=== PATIENT | male | born 1980 | race Caucasian/White ===

== ENCOUNTER 2016-07-02 11:37 | Emergency (ER) | payer OTHER ==
[2016-07-02] MEDS ORDERED: SODIUM CHLORIDE 0.9% 500 ML IV STA (12:20)
[2016-07-02] MEDS ORDERED: MECLIZINE 12.5 MG TAB PO STA ×2 (12:20→14:50)
[2016-07-02] MEDS ORDERED: DIAZEPAM 5 MG/ML 2 ML SYRINGE IVP STA (12:20)
--- NOTE | 2016-07-02 12:25 | ED ---
Dizziness HPI - General Chief Complaint: Dizziness Stated Complaint: FEELS WEAK, HEADACHE, CHEST PAIN, CIRO Time Seen by Provider: 07/02/16 12:06 Source: patient, RN notes reviewed Mode of arrival: ambulatory Limitations: no limitations - History of Present Illness Initial Comments: This a 36-year-old male presents emergency Department chief complaint dizziness. Patient states his woke up this morning with dizziness over the room was spinning. Patient states that he did eat some breakfast which did not help. He went to work and felt that he was still having episodes of dizziness worse with movement. Patient states his boss drove him to the hospital for concerns of his dizziness. Patient has a benign past medical history though he states is not her primary care physician. Patient does complain of a headache primarily on the right side. Patient does complain of some ear pain. He denies any recent cold like symptoms including sore throat, cough and congestion. Patient has fevers or chills. Patient states she does have some improvement of his symptoms when he is at rest. Patient states that he took some improvement to see if that improved his symptoms though did not help. Patient does complain of some chest pain and shortness breath at this time but seems started after his dizziness was present. Patient states he is very anxious currently. - Related Data Home Medications Medication Instructions Recorded Confirmed Ibuprofen [Motrin] 400 mg PO Q6HR PRN 07/02/16 07/02/16 Previous Rx's Medication Instructions Recorded Meclizine [Antivert] 25 mg PO TID PRN #20 tab 07/02/16 Allergies Allergy/AdvReac Type Severity Reaction Status Date / Time No Known Allergies Allergy Verified 07/02/16 12:39 Review of Systems ROS Statement: Those systems with pertinent positive or pertinent negative responses have been documented in the HPI. ROS Other: All systems not noted in ROS Statement are negative. Past Medical History Past Medical History: No Reported History History of Any Multi-Drug Resistant Organisms: None Reported Past Surgical History: Orthopedic Surgery Past Anesthesia/Blood Transfusion Reactions: No Reported Reaction Past Psychological History: Anxiety Smoking Status: Never smoker Past Alcohol Use History: Occasional Past Drug Use History: Marijuana General Exam Limitations: no limitations General appearance: alert, in no apparent distress Head exam: Present: atraumatic, normocephalic, normal inspection Eye exam: Present: normal appearance, PERRL, EOMI. Absent: scleral icterus, conjunctival injection, periorbital swelling ENT exam: Present: normal exam, normal oropharynx, mucous membranes moist, TM's normal bilaterally, normal external ear exam Neck exam: Present: normal inspection, full ROM. Absent: tenderness, meningismus, lymphadenopathy Respiratory exam: Present: normal lung sounds bilaterally. Absent: respiratory distress, wheezes, rales, rhonchi, stridor Cardiovascular Exam: Present: normal rhythm, tachycardia, normal heart sounds. Absent: systolic murmur, diastolic murmur, rubs, gallop, clicks Neurological exam: Present: alert, oriented X3, CN II-XII intact, reflexes normal, other. Absent: motor sensory deficit Psychiatric exam: Present: anxious (patient having panic attack) Skin exam: Present: warm, dry, intact, normal color. Absent: rash Course Vital Signs 07/02/16 07/02/16 07/02/16 11:47 12:04 14:04 Temperature 97.4 F L Pulse Rate 120 H 109 H 99 Respiratory 18 16 Rate Blood Pressure 160/66 159/81 O2 Sat by Pulse 100 100 Oximetry 07/02/16 07/02/16 15:25 15:32 Temperature 99.0 F 97.9 F Pulse Rate 69 99 Respiratory 16 Rate Blood Pressure 109/55 162/89 O2 Sat by Pulse 98 98 Oximetry - Reevaluation(s) Reevaluation #1: 07/02/16 15:39 Patient was reevaluated after second dose of Antivert, Reglan and scopolamine patch. Patient states he is feeling improved. EKG Findings - EKG Comments: EKG Findings:: EKG performed at 11:59 normal sinus rhythm with a rate of 96, [place] 124, QRS duration 76, QT/QTC 340/[address] elevation or depression. Medical Decision Making - Medical Decision Making 36-year-old male presented for dizziness worse with movement. This appears to be vertigo at this time. Patient is improved after medications. Patient CT EKG within normal limits, lab work essentially within normal limits other than mild elevation in liver functions. Patient will follow palpation for recheck with on-call primary care physician Dr. Greenwood. - Lab Data Result diagrams: 07/02/16 13:01 07/02/16 13:01 Lab Results 07/02/16 07/02/16 07/02/16 Range/Units 13:01 13:01 13:01 WBC 8.6 (3.8-10.6) k/uL RBC 4.74 (4.30-5.90) m/uL Hgb 15.8 (13.0-17.5) gm/dL Hct 47.2 (39.0-53.0) % MCV 99.4 (80.0-100.0) fL MCH 33.4 (25.0-35.0) pg MCHC 33.6 (31.0-37.0) g/dL RDW 12.8 (11.5-15.5) % Plt Count 217 (150-450) k/uL Neutrophils % 73 % Lymphocytes % 16 % Monocytes % 7 % Eosinophils % 2 % Basophils % 1 % Neutrophils # 6.3 (1.3-7.7) k/uL Lymphocytes # 1.4 (1.0-4.8) k/uL Monocytes # 0.6 (0-1.0) k/uL Eosinophils # 0.1 (0-0.7) k/uL Basophils # 0.1 (0-0.2) k/uL Sodium 141 (137-145) mmol/L Potassium 4.7 (3.5-5.1) mmol/L Chloride 104 (98-107) mmol/L Carbon Dioxide 26 (22-30) mmol/L Anion Gap 11 mmol/L BUN 14 (9-20) mg/dL Creatinine 0.85 (0.66-1.25) mg/dL Est GFR (MDRD) Af Amer >60 (>60 ml/min/1.73 sqM) Est GFR (MDRD) Non-Af >60 (>60 ml/min/1.73 sqM) Glucose 140 H (74-99) mg/dL Calcium 10.0 (8.4-10.2) mg/dL Total Bilirubin 0.7 (0.2-1.3) mg/dL AST 208 H (17-59) U/L ALT 192 H (21-72) U/L Alkaline Phosphatase 111 (38-126) U/L Troponin I <0.012 (0.000-0.034) ng/mL Total Protein 8.2 (6.3-8.2) g/dL Albumin 4.4 (3.5-5.0) g/dL Disposition Clinical Impression: Vertigo, Elevated LFTs Disposition: HOME SELF-CARE Condition: Stable Instructions: Vertigo (ED), Dizziness (ED) Additional Instructions: Please return to the Emergency Department if symptoms worsen or any other concerns. Make sure to remove scopolamine patch within 72 hours Prescriptions: Meclizine [Antivert] 25 mg PO TID PRN #20 tab PRN Reason: Vertigo Time of Disposition: 15:41
[2016-07-02 13:23] LABS: Basophils # (A) 0.1 k/uL (0-0.2); Basophils % (A) 1 %; CHCM 34.4; Eosinophils # (A) 0.1 k/uL (0-0.7); Eosinophils % (A) 2 %; HCT 47.2 % (39.0-53.0); HDW 2.34; HGB 15.8 gm/dL (13.0-17.5); Luc # (Auto) 0.13; Luc % (Auto) 2; Lymphocytes # (A) 1.4 k/uL (1.0-4.8); Lymphocytes % (A) 16 %; MCH 33.4 pg (25.0-35.0); MCHC 33.6 g/dL (31.0-37.0); MCV 99.4 fL (80.0-100.0); Mean Platelet Volume 7.2; Monocytes # (A) 0.6 k/uL (0-1.0); Monocytes % (A) 7 %; Neutrophils # (A) 6.3 k/uL (1.3-7.7); Neutrophils % (A) 73 %; RBC 4.74 m/uL (4.30-5.90); RDW 12.8 % (11.5-15.5); WBC 8.6 k/uL (3.8-10.6); WBC (Perox) 8.48
[2016-07-02 13:37] LABS: ALT 192 U/L (21-72); AST 208 U/L (17-59); Alkaline Phosphatase 111 U/L (38-126); Anion Gap 11 mmol/L; Blood Urea Nitrogen 14 mg/dL (9-20); Carbon Dioxide 26 mmol/L (22-30); Chloride 104 mmol/L (98-107); Glucose 140 mg/dL (74-99); Non-African American GFR(MDRD) >60 (>60 ml/min/1.73 sqM); Potassium 4.7 mmol/L (3.5-5.1); Sodium 141 mmol/L (137-145); Total Bilirubin 0.7 mg/dL (0.2-1.3); Total Protein 8.2 g/dL (6.3-8.2)
[2016-07-02 14:05] VITALS: RESP 16
--- NOTE | 2016-07-02 14:13 | XR ---
EXAMINATION TYPE: XR chest 2V DATE OF EXAM: 07/02/2016 1:54 PM COMPARISON: Prior chest x-ray 19 June 2010 HISTORY: Chest pain and weakness TECHNIQUE: Frontal and lateral views of the chest are obtained. FINDINGS: There is no focal air space opacity, pleural effusion, or pneumothorax seen. The cardiac silhouette size is within normal limits. There are overlying cardiac leads. The osseous structures a re intact. IMPRESSION: No acute cardiopulmonary process.
--- NOTE | 2016-07-02 14:35 | CT ---
EXAMINATION TYPE: CT brain wo con DATE OF EXAM: 07/02/2016 2:26 PM COMPARISON: Prior head CT June HISTORY: Patient complains of headache, nausea, and dizziness. CT DLP: 818.8 mGycm Automated exposure control for dose reduction was used. FINDINGS: There is no acute intracranial hemorrhage, mass effect, or midline shift identified. The ventricles and sulci are within normal limits in size. The globes are intact and the visualized sinuses are josafat ar. IMPRESSION: No acute intracranial hemorrhage, mass effect, or midline shift is seen.
[2016-07-02] MEDS ORDERED: METOCLOPRAMIDE 5 MG/ML 2 ML VIAL IVP STA (14:51)
[2016-07-02] MEDS ORDERED: SCOPOLAMINE 1.5MG/72HR PATCH TRANSDERM STA (14:51)
[2016-07-02 15:34] VITALS: BP 162/89; PULSE 99; TEMP 97.9
== END 2016-07-02 15:57 | disposition home or self-care (01) ==
LOC: EC 11:37
DX: F41.0 Panic disorder [episodic paroxysmal anxiety] (principal); R79.89 Other specified abnormal findings of blood chemistry; R00.0 Tachycardia, unspecified; H92.09 Otalgia, unspecified ear
CPT/HCPCS: 99284; 96374; 96375; 96361; 36415; 93005; 80053; 84484; 85025; 71020; 70450; J2765; J3360

== ENCOUNTER 2021-09-20 17:02 | Observation (INO) | payer OTHER ==
[2021-09-20] MEDS ORDERED: PANTOPRAZOLE 40 MG/10 ML VIAL IVP STA (17:26)
[2021-09-20] MEDS ORDERED: MAG HYDROX/AL HYDROX/SIMETH 30 ML, HYOSCYAMINE ELIXIR 10 ML, LIDOCAINE VISCOUS 2% 10 ML PO STA ×3 (17:26)
--- NOTE | 2021-09-20 17:39 | XR ---
EXAMINATION TYPE: XR chest 2V DATE OF EXAM: 09/20/2021 5:33 PM COMPARISON: Chest radiographs from 07/02/2016. TECHNIQUE: XR chest 2V Frontal and lateral views of the chest. CLINICAL INDICATION:Male, 41 years old with history of Chest Pain; FINDINGS: Lungs/Pleura: Low lung volumes are present. There is no evidence of pleural effusion, focal consolida tion, or pneumothorax. Pulmonary vascularity: Unremarkable. Heart/mediastinum: Cardiomediastinal silhouette is unremarkable. Musculoskeletal: No acute osseous pathology. IMPRESSION: No acute cardiopulmonary disease/process.
[2021-09-20 17:45] LABS: Basophils # (A) 0.1 k/uL (0-0.2); Basophils % (A) 1 %; Eosinophils % (A) 0 %; HCT 43.5 % (39.0-53.0); Lymphocytes # (A) 0.6 k/uL (1.0-4.8); Lymphocytes % (A) 12 %; MCH 33.9 pg (25.0-35.0); MCHC 34.5 g/dL (31.0-37.0); MCV 98.3 fL (80.0-100.0); Mean Platelet Volume 7.7; Monocytes # (A) 0.4 k/uL (0-1.0); Monocytes % (A) 7 %; Neutrophils # (A) 4.2 k/uL (1.3-7.7); Neutrophils % (A) 78 %; Platelet Count 129 k/uL (150-450); RBC 4.42 m/uL (4.30-5.90); RDW 12.8 % (11.5-15.5); WBC 5.3 k/uL (3.8-10.6)
[2021-09-20 17:53] LABS: INR 1.1 (<1.2); Partial Thromboplastin Time 24.5 sec (22.0-30.0); Prothrombin Time 12.1 sec (9.0-12.0)
[2021-09-20 18:10] LABS: ALT 71 U/L (4-49); African American GFR (CKD) >90 (>60 ml/min/1.73 sqM); Anion Gap 11 mmol/L; Blood Urea Nitrogen 7 mg/dL (9-20); Calcium 9.1 mg/dL (8.4-10.2); Carbon Dioxide 23 mmol/L (22-30); Chloride 96 mmol/L (98-107); Glucose 130 mg/dL (74-99); Lipase 175 U/L (23-300); Non-African American GFR(CKD) >90 (>60 ml/min/1.73 sqM); Sodium 130 mmol/L (137-145); Total Bilirubin 2.2 mg/dL (0.2-1.3)
--- NOTE | 2021-09-20 18:12 | ED ---
General Adult HPI - General Chief complaint: Chest Pain Stated complaint: chest pain Time Seen by Provider: 09/20/21 17:16 Source: patient, RN notes reviewed, old records reviewed Mode of arrival: EMS Limitations: no limitations - History of Present Illness Initial comments: 41-year-old male presenting for evaluation of epigastric and chest pain which is been present for the past 15 hours. This is been constant in nature. He has had some associated nausea with this. He does admit to drinking a sixpack of beer yesterday. Symptoms began at night while at rest. He has no prior history of CAD. There is no associated dyspnea. He was given nitroglycerin by paramedics without improvement. - Related Data Home Medications Medication Instructions Recorded Confirmed Ibuprofen [Motrin] 400 mg PO Q6HR PRN 07/02/16 07/02/16 Previous Rx's Medication Instructions Recorded Meclizine [Antivert] 25 mg PO TID PRN #20 tab 07/02/16 Allergies Allergy/AdvReac Type Severity Reaction Status Date / Time No Known Allergies Allergy Verified 09/20/21 17:15 Review of Systems ROS Statement: Those systems with pertinent positive or pertinent negative responses have been documented in the HPI. ROS Other: All systems not noted in ROS Statement are negative. Past Medical History Past Medical History: No Reported History History of Any Multi-Drug Resistant Organisms: None Reported Past Surgical History: Orthopedic Surgery Additional Past Surgical History / Comment(s): legs have metal plates Past Anesthesia/Blood Transfusion Reactions: No Reported Reaction Past Psychological History: Anxiety Smoking Status: Never smoker Past Alcohol Use History: Occasional Past Drug Use History: Marijuana General Exam Limitations: no limitations General appearance: alert, in no apparent distress Head exam: Present: atraumatic, normocephalic Eye exam: Present: normal appearance, PERRL ENT exam: Present: normal exam Neck exam: Present: normal inspection. Absent: tenderness, meningismus Respiratory exam: Present: normal lung sounds bilaterally. Absent: respiratory distress, wheezes Cardiovascular Exam: Present: regular rate, normal rhythm GI/Abdominal exam: Present: soft. Absent: distended, tenderness Extremities exam: Present: normal inspection, normal capillary refill. Absent: pedal edema Neurological exam: Present: alert, oriented X3, CN II-XII intact. Absent: motor sensory deficit Psychiatric exam: Present: normal affect, normal mood Skin exam: Present: warm, dry, intact. Absent: cyanosis, diaphoretic Course Vital Signs 09/20/21 09/20/21 17:03 18:13 Temperature 98.2 F Pulse Rate 86 79 Respiratory 20 Rate Blood Pressure 124/104 132/92 O2 Sat by Pulse 98 Oximetry EKG Findings - EKG Comments: EKG Findings:: EKG: Sinus rhythm rate of 81, UT interval 137, QRS duration 88, QTC 416, no ST segment elevation. Medical Decision Making - Medical Decision Making 41-year-old male with chest pain, epigastric pain for the last 15 hours. No prior history of CAD. Patient has no abdominal tenderness on exam. Chest pain workup is initiated patient has EKG showing sinus rhythm without ST segment elevation. His chest x-ray is unremarkable. He has a normal white blood cell count, stable hemoglobin. He has a mild elevation in bilirubin at 2.2 and an elevated AST and ALT. He does admit to drinking yesterday. His initial troponin is negative. Perform an ultrasound of the gallbladder which was also negative for acute cholecystitis or acute findings. His magnesium is 1.3 and is replaced. His sodium is 1:30. He appears dehydrated. He will benefit from IV hydration, repeat laboratory testing including serial cardiac enzymes. Case discussed with Dr. Benitez. - Lab Data Result diagrams: 09/20/21 17:07 09/20/21 17:07 Lab Results 09/20/21 09/20/21 09/20/21 Range/Units 17:07 17:07 17:07 WBC 5.3 (3.8-10.6) k/uL RBC 4.42 (4.30-5.90) m/uL Hgb 15.0 (13.0-17.5) gm/dL Hct 43.5 (39.0-53.0) % MCV 98.3 (80.0-100.0) fL MCH 33.9 (25.0-35.0) pg MCHC 34.5 (31.0-37.0) g/dL RDW 12.8 (11.5-15.5) % Plt Count 129 L (150-450) k/uL MPV 7.7 Neutrophils % 78 % Lymphocytes % 12 % Monocytes % 7 % Eosinophils % 0 % Basophils % 1 % Neutrophils # 4.2 (1.3-7.7) k/uL Lymphocytes # 0.6 L (1.0-4.8) k/uL Monocytes # 0.4 (0-1.0) k/uL Eosinophils # 0.0 (0-0.7) k/uL Basophils # 0.1 (0-0.2) k/uL PT 12.1 H (9.0-12.0) sec INR 1.1 (<1.2) APTT 24.5 (22.0-30.0) sec Sodium 130 L (137-145) mmol/L Potassium 4.9 (3.5-5.1) mmol/L Chloride 96 L (98-107) mmol/L Carbon Dioxide 23 (22-30) mmol/L Anion Gap 11 mmol/L BUN 7 L (9-20) mg/dL Creatinine 0.83 (0.66-1.25) mg/dL Est GFR (CKD-EPI)AfAm >90 (>60 ml/min/1.73 sqM) Est GFR (CKD-EPI)NonAf >90 (>60 ml/min/1.73 sqM) Glucose 130 H (74-99) mg/dL Calcium 9.1 (8.4-10.2) mg/dL Magnesium 1.3 L (1.6-2.3) mg/dL Total Bilirubin 2.2 H (0.2-1.3) mg/dL AST 129 H (17-59) U/L ALT 71 H (4-49) U/L Alkaline Phosphatase 109 (38-126) U/L Troponin I (0.000-0.034) ng/mL Total Protein 8.7 H (6.3-8.2) g/dL Albumin 4.7 (3.5-5.0) g/dL Lipase 175 (23-300) U/L 09/20/21 Range/Units 17:07 WBC (3.8-10.6) k/uL RBC (4.30-5.90) m/uL Hgb (13.0-17.5) gm/dL Hct (39.0-53.0) % MCV (80.0-100.0) fL MCH (25.0-35.0) pg MCHC (31.0-37.0) g/dL RDW (11.5-15.5) % Plt Count (150-450) k/uL MPV Neutrophils % % Lymphocytes % % Monocytes % % Eosinophils % % Basophils % % Neutrophils # (1.3-7.7) k/uL Lymphocytes # (1.0-4.8) k/uL Monocytes # (0-1.0) k/uL Eosinophils # (0-0.7) k/uL Basophils # (0-0.2) k/uL PT (9.0-12.0) sec INR (<1.2) APTT (22.0-30.0) sec Sodium (137-145) mmol/L Potassium (3.5-5.1) mmol/L Chloride (98-107) mmol/L Carbon Dioxide (22-30) mmol/L Anion Gap mmol/L BUN (9-20) mg/dL Creatinine (0.66-1.25) mg/dL Est GFR (CKD-EPI)AfAm (>60 ml/min/1.73 sqM) Est GFR (CKD-EPI)NonAf (>60 ml/min/1.73 sqM) Glucose (74-99) mg/dL Calcium (8.4-10.2) mg/dL Magnesium (1.6-2.3) mg/dL Total Bilirubin (0.2-1.3) mg/dL AST (17-59) U/L ALT (4-49) U/L Alkaline Phosphatase (38-126) U/L Troponin I <0.012 (0.000-0.034) ng/mL Total Protein (6.3-8.2) g/dL Albumin (3.5-5.0) g/dL Lipase (23-300) U/L Disposition Clinical Impression: Chest pain, Hypomagnesemia, Hyponatremia, Dehydration Disposition: ADMITTED IP TO THIS [facility] Condition: Stable Referrals: None,Stated [Primary Care Provider] - 1-2 days Time of Disposition: 20:07
[2021-09-20] MEDS ORDERED: ONDANSETRON 4 MG/2 ML VIAL IVP STA (18:28)
[2021-09-20 18:33] LABS: AST 129 U/L (17-59); Albumin 4.7 g/dL (3.5-5.0); Alkaline Phosphatase 109 U/L (38-126); Potassium 4.9 mmol/L (3.5-5.1); Total Protein 8.7 g/dL (6.3-8.2)
[2021-09-20 18:34] LABS: Magnesium 1.3 mg/dL (1.6-2.3)
[2021-09-20] MEDS ORDERED: MAGNESIUM SULFATE-D5W PMX 1 GM in DEXTROSE/WATER 1 100ML.BAG IVPB ONE (18:42)
--- NOTE | 2021-09-20 19:53 | US ---
EXAMINATION TYPE: US gallbladder DATE OF EXAM: 09/20/2021 COMPARISON: NONE CLINICAL HISTORY: epigastric pain. Pain blurred vision limitations due to body habitus. EXAM MEASUREMENTS: Liver Length: 15.4 cm Gallbladder Wall: .2 cm CBD: .5 cm Right Kidney: 9.9 x 5.1 x 4.6 cm Pancreas: Obscured by bowel gas Liver: Increased attenuation. This limits evaluation. No gross evidence of suspicious lesions. Gallbladder: Artifact vs. Sludge visualized. No shadowing gallstones. No pericholecystic fluid or wa ll thickening. Evidence for sonographic Serrato's sign: No CBD: wnl Right Kidney: No hydronephrosis or masses seen IMPRESSION: * No ultrasound evidence for acute cholecystitis. * Echogenic regions within the gallbladder which may represent artifact versus biliary sludge. No sh adowing gallstones.
[2021-09-20] MEDS ORDERED: HYDROmorphone 0.5 MG/0.5 ML SYRINGE IVP PRN (20:04)
[2021-09-20] MEDS ORDERED: ONDANSETRON 4 MG/2 ML VIAL IVP PRN (20:04)
[2021-09-20] MEDS ORDERED: NALOXONE 0.4 MG/ML 1 ML VIAL IV PRN (20:04)
[2021-09-20] MEDS ORDERED: ASPIRIN 325 MG TAB PO STA (20:04)
[2021-09-20] MEDS: SODIUM CHLORIDE 0.9% 1,000 ML IV SCH (20:23)
[2021-09-20] MEDS: PANTOPRAZOLE 40 MG/10 ML VIAL IVP SCH (21:56)
[2021-09-20] MEDS: hydrALAZINE HCL 20 MG/ML 1 ML VIAL IVP PRN (22:37)
[2021-09-20] MEDS: LORazepam 2 MG/ML INJ IV PRN (23:16)
[2021-09-21] MEDS: LORazepam 2 MG/ML INJ IV PRN (06:08)
[2021-09-21] MEDS: hydrALAZINE HCL 20 MG/ML 1 ML VIAL IVP PRN (06:17)
[2021-09-21] MEDS: amLODIPine 10 MG TAB PO SCH (09:21)
[2021-09-21] MEDS: PANTOPRAZOLE 40 MG/10 ML VIAL IVP SCH ×2 (09:23→20:09)
[2021-09-21 09:43] LABS: African American GFR (CKD) 117.4 (60.0-200.0); Albumin 4.4 g/dL (3.8-4.9); Albumin/Globulin Ratio 1.23 (1.60-3.17); Anion Gap 12.8 mmol/L (10.00-18.00); BUN/Creat Ratio 8.79 Ratio (12.00-20.00); Blood Urea Nitrogen 8.2 mg/dL (9.0-27.0); Calcium 9.1 mg/dL (8.7-10.3); Carbon Dioxide 24.8 mmol/L (20.0-27.5); Globulin 3.6 g/dL (1.6-3.3); Non-African American GFR(CKD) 101.3 (60.0-200.0); Total Bilirubin 1.6 mg/dL (0.30-1.20)
[2021-09-21 10:21] LABS: Basophils # (A) 0.04 X 10*3/uL (0.00-0.10); Basophils % (A) 0.8 %; Eosinophils # (A) 0.01 X 10*3/uL (0.04-0.35); Eosinophils % (A) 0.2 %; HGB 14.8 g/dL (13.0-17.0); Immature Grans, Automated 0.2 %; Lymphocytes # (A) 0.86 X 10*3/uL (0.90-5.00); Lymphocytes % (A) 17.1 %; MCH 32.1 pg (27.0-32.0); MCHC 33.6 g/dL (32.0-37.0); MCV 95.4 fL (80.0-97.0); Mean Platelet Volume 9.9 fL (9.5-12.2); Monocytes # (A) 0.65 X 10*3/uL (0.20-1.00); Monocytes % (A) 12.9 %; NRBC Per 100 WBC 0 /100 WBCS (0.0-0.0); Neutrophils # (A) 3.47 X 10*3/uL (1.80-7.70); Neutrophils % (A) 68.8 %; Platelet Count 96 X 10*3/uL (140-440); RBC 4.61 X 10*6/uL (4.40-5.60); RDW 12.4 % (11.5-14.5); WBC 5.04 X 10*3/uL (4.50-10.00)
[2021-09-21 10:22] LABS: RBC Morphology NORMAL
[2021-09-21] MEDS: SODIUM CHLORIDE 0.9% 1,000 ML IV SCH (11:57)
--- NOTE | 2021-09-21 12:31 | HP ---
HISTORY AND PHYSICAL HISTORY OF PRESENT ILLNESS: 41-year-old white male was out cutting wood with his dad, chain sawing, drinking a lot of alcohol and beer for the last 2 weeks, not drinking any water. He came in with epigastric and atypical chest pain. He feels much better today. He has been given fluids all night, some nausea. Make sure he does not go into alcohol withdrawal while here. Most of the pain was in epigastric area. We will check his gallbladder ultrasound. Nitro did not help his pain. MEDICATIONS: Home medications are Motrin. ALLERGIES: Negative. REVIEW OF SYMPTOMS: 14 point review of systems otherwise negative. PAST MEDICAL HISTORY: History of anxiety. SURGERIES: Orthopedic surgery. Occasional marijuana. PHYSICAL EXAM: Temp 98.2, pulse 79 to 86, blood pressure 120s to 130s over 90 to 104, O2 98, respiratory 18 to 20. EKG normal sinus rhythm. White count was normal. Hemoglobin stable. Elevated bilirubin at 2.2. Elevated liver enzymes. Gallbladder showed no acute cholecystitis. Magnesium was replaced. Sodium was low at 3. He was dehydrated with metabolic abnormalities with hyponatremia, hypomagnesemia, which were replaced. Feels much better. Possible discharge if cleared by surgery. MMODL / IJN: [id number] /
--- NOTE | 2021-09-21 12:52 | CONS ---
CONSULTATION HISTORY OF PRESENT ILLNESS: Elliot is a 41-year-old gentleman with no significant past medical history with history of alcohol abuse, who presented to hospital yesterday complaining of epigastric and chest pain. This was constant going on for about 10-15 hours and was associated with some nausea. The patient had multiple alcohol drinks prior to coming in. His admission troponin was normal. EKG did revealed normal sinus rhythm and was within normal limits. There is elevation of the bilirubin. I do not see any alcohol level. Since being admitted, the patient's symptoms have improved. Myocardial infarction had been ruled out. This morning. Blood pressure is elevated. I am going to start the patient on amlodipine 10 mg daily. PAST MEDICAL HISTORY: Past medical history is negative for hypertension, diabetes, dyslipidemia. MEDICATIONS: Medication at home include Xanax. ALLERGIES: No known drug allergies. FAMILY HISTORY: Negative for premature coronary artery disease. SOCIAL HISTORY: Negative for smoking. Significant for ETOH abuse. There is no history of drug abuse. REVIEW OF SYSTEMS: review of systems has been performed. It is unremarkable other than what has been mentioned above. PHYSICAL EXAMINATION: On exam comfortable at rest. Blood pressure is elevated. There is no jugular venous distention. Carotid upstroke is normal. There is no bruit. Chest exam reveals good air entry bilaterally. Heart exam reveals first and second heart sounds. No gallop. No murmur. Abdomen is soft, nontender. Examination of extremities did not reveal any edema. Peripheral pulses are felt. ASSESSMENT: 1. Atypical chest pain, myocardial infarction ruled out. 2. ETOH abuse. PLAN: 1. I will obtain a 2D echo. If this shows normal LV function and wall motion, no further cardiac workup at this time. 2. Hypertension. Start the patient on amlodipine. MMODL / IJN: [id number] /
--- NOTE | 2021-09-21 13:11 | P.GSCN ---
History of Present Illness Consult date: 09/21/21 Reason for Consult: Epigastric pain, gallbladder sludge History of present illness: This a 41-year-old male who was admitted through the emergency room. Patient points of some epigastric and chest wall pain. Patient also shows evidence of gallbladder sludge. His liver function tests are also suggestive of biliary colic. Patient has a history of mild alcohol use. He states he used to drink up to 8 beers per day. Past Medical History Past Medical History: No Reported History History of Any Multi-Drug Resistant Organisms: None Reported Past Surgical History: Orthopedic Surgery Additional Past Surgical History / Comment(s): legs have metal plates Past Anesthesia/Blood Transfusion Reactions: No Reported Reaction Past Psychological History: Anxiety Smoking Status: Former smoker Past Alcohol Use History: Occasional Additional Past Alcohol Use History / Comment(s): Pt states he drinks usually on the weekends and has never had DTs or withdrawn before. Past Drug Use History: Marijuana Medications and Allergies Home Medications Medication Instructions Recorded Confirmed Type Xanax 1mg(Unknown) 1 tab PO DAILY 09/20/21 09/20/21 History Allergies Allergy/AdvReac Type Severity Reaction Status Date / Time No Known Allergies Allergy Verified 09/20/21 20:29 Surgical - Exam Vital Signs Temp Pulse Resp BP Pulse Ox 98.2 F 86 20 124/104 98 09/20/21 17:03 09/20/21 17:03 09/20/21 17:03 09/20/21 17:03 09/20/21 17:03 - General well developed, well nourished, no distress - Eyes PERRL - ENT normal pinna - Neck no masses - Respiratory normal expansion - Cardiovascular Rhythm: regular - Abdomen Mild epigastric pain Abdomen: soft Results - Labs 09/21/21 04:30 09/21/21 04:30 Abnormal Lab Results - Last 24 Hours (Table) 09/20/21 09/20/21 09/20/21 Range/Units 17:07 17:07 17:07 MCH (27.0-32.0) pg Plt Count 129 L (150-450) k/uL Plt Count Comment Lymphocytes # 0.6 L (1.0-4.8) k/uL Eosinophils # (0.04-0.35) X 10*3/uL PT 12.1 H (9.0-12.0) sec Sodium 130 L (137-145) mmol/L Chloride 96 L (98-107) mmol/L BUN 7 L (9-20) mg/dL BUN/Creatinine Ratio (12.00-20.00) Ratio Glucose 130 H (74-99) mg/dL Magnesium 1.3 L (1.6-2.3) mg/dL Total Bilirubin 2.2 H (0.2-1.3) mg/dL AST 129 H (17-59) U/L ALT 71 H (4-49) U/L Total Protein 8.7 H (6.3-8.2) g/dL Globulin (1.6-3.3) g/dL Albumin/Globulin Ratio (1.60-3.17) g/dL 09/21/21 09/21/21 Range/Units 04:30 04:30 MCH 32.1 H (27.0-32.0) pg Plt Count 96 L (150-450) k/uL Plt Count Comment DECREASED A Lymphocytes # 0.86 L (1.0-4.8) k/uL Eosinophils # 0.01 L (0.04-0.35) X 10*3/uL PT (9.0-12.0) sec Sodium 133 L (137-145) mmol/L Chloride 95 L (98-107) mmol/L BUN 8.2 L (9-20) mg/dL BUN/Creatinine Ratio 8.79 L (12.00-20.00) Ratio Glucose (74-99) mg/dL Magnesium (1.6-2.3) mg/dL Total Bilirubin 1.60 H (0.2-1.3) mg/dL AST 80 H (17-59) U/L ALT 62 H (4-49) U/L Total Protein (6.3-8.2) g/dL Globulin 3.6 H (1.6-3.3) g/dL Albumin/Globulin Ratio 1.23 L (1.60-3.17) g/dL Diabetes panel 09/20/21 09/21/21 Range/Units 17:07 04:30 Sodium 130 L 133 L (137-145) mmol/L Potassium 4.9 4.0 (3.5-5.1) mmol/L Chloride 96 L 95 L (98-107) mmol/L Carbon Dioxide 23 24.8 (22-30) mmol/L BUN 7 L 8.2 L (9-20) mg/dL Creatinine 0.83 0.9 (0.66-1.25) mg/dL Glucose 130 H 88 (74-99) mg/dL Calcium 9.1 9.1 (8.4-10.2) mg/dL AST 129 H 80 H (17-59) U/L ALT 71 H 62 H (4-49) U/L Alkaline Phosphatase 109 100 (38-126) U/L Total Protein 8.7 H 8.0 (6.3-8.2) g/dL Albumin 4.7 4.4 (3.5-5.0) g/dL Calcium panel 09/20/21 09/21/21 Range/Units 17:07 04:30 Calcium 9.1 9.1 (8.4-10.2) mg/dL Albumin 4.7 4.4 (3.5-5.0) g/dL Pituitary panel 09/20/21 09/21/21 Range/Units 17:07 04:30 Sodium 130 L 133 L (137-145) mmol/L Potassium 4.9 4.0 (3.5-5.1) mmol/L Chloride 96 L 95 L (98-107) mmol/L Carbon Dioxide 23 24.8 (22-30) mmol/L BUN 7 L 8.2 L (9-20) mg/dL Creatinine 0.83 0.9 (0.66-1.25) mg/dL Glucose 130 H 88 (74-99) mg/dL Calcium 9.1 9.1 (8.4-10.2) mg/dL Adrenal panel 09/20/21 09/21/21 Range/Units 17:07 04:30 Sodium 130 L 133 L (137-145) mmol/L Potassium 4.9 4.0 (3.5-5.1) mmol/L Chloride 96 L 95 L (98-107) mmol/L Carbon Dioxide 23 24.8 (22-30) mmol/L BUN 7 L 8.2 L (9-20) mg/dL Creatinine 0.83 0.9 (0.66-1.25) mg/dL Glucose 130 H 88 (74-99) mg/dL Calcium 9.1 9.1 (8.4-10.2) mg/dL Total Bilirubin 2.2 H 1.60 H (0.2-1.3) mg/dL AST 129 H 80 H (17-59) U/L ALT 71 H 62 H (4-49) U/L Alkaline Phosphatase 109 100 (38-126) U/L Total Protein 8.7 H 8.0 (6.3-8.2) g/dL Albumin 4.7 4.4 (3.5-5.0) g/dL Assessment and Plan Assessment: Epigastric and chest wall pain most likely due to biliary colic. Patient has sludge in his gallbladder. Patient will undergo laparoscopic cholecystectomy when stable.
[2021-09-21] MEDS ORDERED: LORATADINE 10 MG TAB PO PRN (21:16)
[2021-09-22 07:56] VITALS: RESP 18
[2021-09-22] MEDS ORDERED: METOPROLOL TARTRATE 25 MG TAB PO SCH (09:00)
[2021-09-22] MEDS: PANTOPRAZOLE 40 MG/10 ML VIAL IVP SCH (09:54)
[2021-09-22] MEDS: amLODIPine 10 MG TAB PO SCH (09:54)
--- NOTE | 2021-09-22 10:15 | P.PN ---
Subjective Progress Note Date: 09/22/21 HISTORY OF PRESENT ILLNESS: This is a 41-year-old male who presented to the hospital with a chief complaint of epigastric pain and chest pain. An acute coronary event was ruled out. The patient was examined this morning. He denies any chest pain or pressure. He denies shortness of breath. The patient's blood pressure remains elevated. He was started on amlodipine 10 mg daily yesterday. PHYSICAL EXAM: VITAL SIGNS: Reviewed. GENERAL: Well-developed in no acute distress. NECK: Supple. No JVD or thyromegaly LUNGS: Respirations even and unlabored. Lungs essentially clear to auscultation bilaterally. HEART: Regular rate and rhythm. S1 and S2 heard. EXTREMITIES: Normal range of motion. No clubbing or cyanosis. Peripheral pulses intact. No lower extremity edema ASSESSMENT: Epigastric pain Chest pain, atypical, troponin negative 3 Hypertension Alcohol abuse PLAN: 2-D echo ordered. Await results. Continue amlodipine 10 mg daily Metoprolol titrate 25 mg twice a day Continue to monitor blood pressure Further recommendations pending patient's course Nurse practitioner note has been reviewed by physician. Signing provider agrees with the documented findings, assessment, and plan of care. Objective - Vital Signs Vital signs: Vital Signs Temp 98.3 F 09/22/21 07:00 Pulse 97 09/22/21 07:00 Resp 18 09/22/21 07:00 BP 156/92 09/22/21 07:00 Pulse Ox 99 09/22/21 07:00 FiO2 Intake & Output 09/21/21 09/22/21 09/22/21 18:59 06:59 18:59 Intake Total 780 500 118 Output Total 850 Balance -70 500 118 Intake: Intake, IV Titration 600 Amount Sodium Chloride 0.9% 1, 600 000 ml @ 75 mls/hr IV . [id number] [facility] Rx#:[id number] Oral 180 500 118 Output: Urine 850 Other: Voiding Method Toilet # Voids 1 - Labs CBC & Chem 7: 09/21/21 04:30 09/21/21 04:30 Labs: Abnormal Lab Results - Last 24 Hours (Table) 09/21/21 Range/Units 04:30 MCH 32.1 H (27.0-32.0) pg Plt Count 96 L (140-440) X 10*3/uL Plt Count Comment DECREASED A Lymphocytes # 0.86 L (0.90-5.00) X 10*3/uL Eosinophils # 0.01 L (0.04-0.35) X 10*3/uL
[2021-09-22 13:53] VITALS: BP 142/80; PULSE 80; TEMP 98.1
--- NOTE | 2021-09-22 15:52 | P.PN ---
Progress Note - Text Progress Note Date: 09/22/21 Patient feels slightly better today. He states pain is improved. On exam vital signs are stable. Abdomen soft. Patient's liver function tests are trending downward. Biliary sludge with possible choledocholithiasis. Patient is improving. Patient will be seen in the outpatient possible outpatient cholecystectomy.
--- NOTE | 2021-09-23 07:32 | CA ---
Transthoracic Echo Report Name: Elliot Douglas Age: 41 Gender: M : 1980 Exam Date: 09/22/2021 11:18 Exam Location: [place] [facility] Ht (in): 68 Wt (lb): 215 Ordering Physician: Isiah Domínguez MD ([id number]) Attending/Referring Phys: Catrachita NOGUEIRA Public Safety Telecommunicator Leora Wu RDCS Procedure CPT: Indications: Chest Pain Cardiac Hx: Technical Quality: Contrast 1: Total Dose (mL): Contrast 2: Total Dose (mL): MEASUREMENTS (Male / Female) Normal Values 2D ECHO LV Diastolic Diameter PLAX 5.0 cm 4.2 - 5.9 / 3.9 - 5.3 cm LV Systolic Diameter PLAX 3.1 cm IVS Diastolic Thickness 1.2 cm 0.6 - 1.0 / 0.6 - 0.9 cm LVPW Diastolic Thickness 1.0 cm 0.6 - 1.0 / 0.6 - 0.9 cm LV Relative Wall Thickness 0.4 RV Internal Dim ED PLAX 3.1 cm LA Systolic Diameter LX 3.2 cm 3.0 - 4.0 / 2.7 - 3.8 cm LA Volume 51.4 cm??? 18 - 58 / 22 - 52 cm??? M-MODE Aortic Root Diameter MM 2.6 cm MV E Point Septal Separation 1.2 cm AV Cusp Separation MM 1.9 cm DOPPLER AV Peak Velocity 175.2 cm/s AV Peak Gradient 12.3 mmHg MV Area PHT 3.4 cm??? Mitral E Point Velocity 116.5 cm/s Mitral A Point Velocity 82.0 cm/s Mitral E to A Ratio 1.4 MV Deceleration Time 226.3 ms MV E' Velocity 11.9 cm/s Mitral E to MV E' Ratio 9.8 TR Peak Velocity 222.9 cm/s TR Peak Gradient 19.9 mmHg Right Ventricular Systolic Press 24.5 mmHg FINDINGS Left Ventricle Left ventricular ejection fraction is estimated at 55-60 %. Left ventricular cavity size normal. Borderline left ventricular hypertrophy. Right Ventricle Normal right ventricular size. Right ventricular systolic pressure within normal limits. Right Atrium Normal right atrial size. Left Atrium Normal left atrial size. No evidence for an atrial septal defect. Mitral Valve Structurally normal mitral valve. Trace to mild mitral regurgitation. Aortic Valve Trileaflet aortic valve. No aortic valve stenosis or regurgitation. Tricuspid Valve Mild tricuspid regurgitation. Pulmonic Valve Structurally normal pulmonic valve. Pericardium Normal no pericardial effusion Aorta Normal size aortic root and proximal ascending aorta. CONCLUSIONS Normal LV size and systolic function. No significant abnormality in the Doppler exam. No pericardial effusion Previewed by: Dr. Jaylyn Schulte MD (Electronically Signed) Final Date: 23 September 2021 07:31
== END 2021-09-22 18:02 | disposition home or self-care (01) ==
LOC: EC 17:02 → 6NMEDSUR 20:04
PROVIDERS: ADMIT Family Medicine; ATTEND Family Medicine
DX: R07.89 Other chest pain (principal); E86.0 Dehydration; K82.8 Other specified diseases of gallbladder; E87.1 Hypo-osmolality and hyponatremia; E83.42 Hypomagnesemia; I10 Essential (primary) hypertension; R10.13 Epigastric pain; R74.01 Elevation of levels of liver transaminase levels; E80.7 Disorder of bilirubin metabolism, unspecified; F10.10 Alcohol abuse, uncomplicated; F41.9 Anxiety disorder, unspecified; Z79.899 Other long term (current) drug therapy; Z87.891 Personal history of nicotine dependence
CPT/HCPCS: 96376 ×4; 96365; 96375; 99285; 36415; 94760; 93005; 93306; 80053 ×2; 83690; 83735 ×2; 84484; 85025 ×2; 85610; 85730; 71046; 76705; G0378 ×3; J2060 ×2; J0360 ×2; J2405; J3475; C9113 ×3; J1170

== ENCOUNTER 2023-10-06 04:28 | Emergency (ER) | payer OTHER ==
[2023-10-06] MEDS ORDERED: SODIUM CHLORIDE 0.9% 1,000 ML BAG ONE (05:15)
[2023-10-06] MEDS ORDERED: ASPIRIN 325 MG TAB ONE (05:20)
[2023-10-06] MEDS ORDERED: NITROGLYCERIN OINT 1 INCH/GM PACKET TOPICAL ONE (05:20)
[2023-10-06] MEDS ORDERED: MORPHINE SULFATE 4 MG/ML SYRINGE ONE (05:21)
[2023-10-06] MEDS ORDERED: LORazepam 2 MG/ML INJ ONE (07:00)
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
== END 2023-10-06 08:39 | disposition home or self-care (01) ==
LOC: EC 04:28
DX: R07.89 Other chest pain (principal)
CPT/HCPCS: 71046; 80053; 82150; 83605; 83690; 84484; 85025; 85379; 85610; 85730; 93005; 96361; 96374; 96375; 99285

== ENCOUNTER 2024-03-04 22:10 | Emergency (ER) | payer OTHER ==
[2024-03-04 22:21] VITALS: RESP 18
--- NOTE | 2024-03-04 22:39 | ED ---
Abdominal Pain HPI - General Chief Complaint: Abdominal Pain Stated Complaint: abd pain Time Seen by Provider: 03/04/24 22:23 Source: patient, RN notes reviewed Mode of arrival: ambulatory Limitations: no limitations - History of Present Illness Initial Comments: This is a 43-year-old male with history of anxiety presenting to the emergency department for multiple complaints. Patient states that over the past year he has been having abdominal pain more notably of the right upper quadrant however over the past week this has been worsening described as a burning sensation. Additionally, patient states that he is constipated with his last bowel movement being few days prior and additionally has been experiencing bright red blood in his stool. He denies associated nausea, vomiting, hematuria, dysuria, chest pain, heart palpitations, dizziness or lightheadedness. Denies previous surgeries of his abdomen. Denies history of hemorrhoids. States that he took a laxative yesterday evening with no successful bowel movement. - Related Data Home Medications Medication Instructions Recorded Confirmed Xanax 1mg(Unknown) 1 tab PO DAILY 09/20/21 09/20/21 Previous Rx's Medication Instructions Recorded Loratadine [Claritin] 5 mg PO Q12HR PRN 30 Days #30 tab 09/22/21 Metoprolol Tartrate [Lopressor] 25 mg PO BID 30 Days #60 tab 09/22/21 amLODIPine [Norvasc] 10 mg PO DAILY 30 Days #30 tab 09/22/21 Allergies Allergy/AdvReac Type Severity Reaction Status Date / Time No Known Allergies Allergy Verified 03/04/24 22:21 Review of Systems ROS Statement: Those systems with pertinent positive or pertinent negative responses have been documented in the HPI. ROS Other: All systems not noted in ROS Statement are negative. Past Medical History Past Medical History: No Reported History History of Any Multi-Drug Resistant Organisms: None Reported Past Surgical History: Orthopedic Surgery Additional Past Surgical History / Comment(s): legs have metal plates Past Anesthesia/Blood Transfusion Reactions: No Reported Reaction Past Psychological History: Anxiety Smoking Status: Current every day smoker Past Alcohol Use History: Occasional Past Drug Use History: Marijuana General Exam Limitations: no limitations Course Vital Signs 03/04/24 22:19 Temperature 98 F Pulse Rate 96 Respiratory 18 Rate Blood Pressure 152/90 O2 Sat by Pulse 100 Oximetry Medical Decision Making - Medical Decision Making Was pt. sent in by a medical professional or institution (, PA, ELEMENTARY SCHOOL ART TEACHER, urgent care, hospital, or longterm...) When possible be specific @ -No Did you speak to anyone other than the patient for history (EMS, parent, family, police, friend...)? What history was obtained from this source @ -No Did you review nursing and triage notes (agree or disagree)? Why? @ -I reviewed and agree with nursing and triage notes Were old charts reviewed (outside hosp., previous admission, EMS record, old EKG, old radiological studies, urgent care reports/EKG's, longterm records)? Report findings @ -No old charts were reviewed Differential Diagnosis (chest pain, altered mental status, abdominal pain women, abdominal pain men, vaginal bleeding, weakness, fever, dyspnea, syncope, headache, dizziness, GI bleed, back pain, seizure, CVA, palpatations, mental health, musculoskeletal)? @ -Differential Abdominal Pain Men: Appendicitis, cholecystitis, diverticulosis, ischemic bowel, pancreatitis, hepatitis, UTI, gastroenteritis, AAA, incarcerated hernia, bowel obstruction, constipation, inflammatory bowel, hepatitis, peptic ulcer disease, splenic infarction, perforated viscus, testicular torsion, this is not meant to be an all-inclusive list EKG interpreted by me (3pts min.). @ -None X-rays interpreted by me (1pt min.). @ -None done CT interpreted by me (1pt min.). @ -None done U/S interpreted by me (1pt. min.). @ -Ultrasound of the gallbladder reveals no evidence for cholelithiasis or cholecystitis. What testing was considered but not performed or refused? (CT, X-rays, U/S, labs)? Why? @ -None What meds were considered but not given or refused? Why? @ -None Did you discuss the management of the patient with other professionals (professionals i.e. Dr. PA, ELEMENTARY SCHOOL ART TEACHER, lab, RT, psych nurse, social media marketing manager, roller printing supervisor, teacher, commercial account officer, case fitter)? Give summary @ -No Was smoking cessation discussed for >3mins.? @ -No Was critical care preformed (if so, how long)? @ -No Were there social determinants of health that impacted care today? How? ( Homelessness, low income, unemployed, alcoholism, drug addiction, transportation, low edu. Level, literacy, decrease access to med. care, long-term, rehab)? @ -No Was there de-escalation of care discussed even if they declined (Discuss DNR or withdrawal of care, Hospice)? DNR status @ -No What co-morbidities impacted this encounter? (DM, HTN, Smoking, COPD, CAD, Cancer, CVA, ARF, Chemo, Hep., AIDS, mental health diagnosis, sleep apnea, morbid obesity)? @ -None Was patient admitted / discharged? Hospital course, mention meds given and route, prescriptions, significant lab abnormalities, going to OR and other pertinent info. @ -Discharge. 43-year-old male presenting with right upper quadrant abdominal pain and constipation. Patient noted to have tenderness right upper quadrant. No signs of rebound tenderness or rigidity. Patient is provided with home for pain and will be evaluated via laboratory studies and ultrasound. He is agree with this plan. Amatory testing including CBC, CMP, pancreatic enzymes within normal limits. Ultrasound is unremarkable. Patient's pain has been chronic over the past year and a half at this time he is comfortable for discharge with follow-up with primary care provider for further evaluation. Patient provided with magnesium citrate to take at home for constipation and instructed to increase fluids, fiber, and use of stool softner. Case discussed with Dr. Feliciano Undiagnosed new problem with uncertain prognosis? @ -No Drug Therapy requiring intensive monitoring for toxicity (Heparin, Nitro, Insulin, Cardizem)? @ -No Were any procedures done? @ -No Diagnosis/symptom? @ -abdominal pain, constipation Acute, or Chronic, or Acute on Chronic? @ -Acute Uncomplicated (without systemic symptoms) or Complicated (systemic symptoms)? @ -uncomplicated Side effects of treatment? @ -No Exacerbation, Progression, or Severe Exacerbation? @ -No Poses a threat to life or bodily function? How? (Chest pain, [place], [place], pneumonia, PE, COPD, DKA, ARF, appy, cholecystitis, CVA, Diverticulitis, Homicidal, Suicidal, threat to staff... and all critical care pts) @ -No - Lab Data Result diagrams: 03/04/24 22:42 03/04/24 22:42 Lab Results 03/04/24 03/04/24 Range/Units 22:42 22:42 WBC 7.6 (3.8-10.6) k/uL RBC 4.89 (4.30-5.90) m/uL Hgb 15.1 (13.0-17.5) gm/dL Hct 46.0 (39.0-53.0) % MCV 94.1 (80.0-100.0) fL MCH 30.8 (25.0-35.0) pg MCHC 32.7 (31.0-37.0) g/dL RDW 13.0 (11.5-15.5) % Plt Count 248 (150-450) k/uL MPV 7.7 Neutrophils % 70 % Lymphocytes % 20 % Monocytes % 6 % Eosinophils % 2 % Basophils % 1 % Neutrophils # 5.3 (1.3-7.7) k/uL Lymphocytes # 1.5 (1.0-4.8) k/uL Monocytes # 0.5 (0-1.0) k/uL Eosinophils # 0.1 (0-0.7) k/uL Basophils # 0.0 (0-0.2) k/uL Sodium 139 (137-145) mmol/L Potassium 4.4 (3.5-5.1) mmol/L Chloride 101 (98-107) mmol/L Carbon Dioxide 28 (22-30) mmol/L Anion Gap 10 mmol/L BUN 7 L (9-20) mg/dL Creatinine 0.89 (0.66-1.25) mg/dL Est GFR (CKD-EPI)AfAm >90 (>60 ml/min/1.73 sqM) Est GFR (CKD-EPI)NonAf >90 (>60 ml/min/1.73 sqM) Glucose 128 H (74-99) mg/dL Calcium 10.1 (8.4-10.2) mg/dL Total Bilirubin 0.8 (0.2-1.3) mg/dL AST 40 (17-59) U/L ALT 37 (4-49) U/L Alkaline Phosphatase 86 (38-126) U/L Total Protein 7.9 (6.3-8.2) g/dL Albumin 4.7 (3.5-5.0) g/dL Amylase 57 (30-110) U/L Lipase 49 (23-300) U/L Disposition Clinical Impression: Abdominal pain, Constipation Disposition: HOME SELF-CARE Condition: Good Instructions (If sedation given, give patient instructions): Abdominal Pain (E D) Additional Instructions: Please return to the Emergency Department if symptoms worsen or any other concerns. Is patient prescribed a controlled substance at d/c from ED?: No Referrals: None,Stated [Primary Care Provider] - 1-2 days Time of Disposition: 03:02
[2024-03-04] MEDS: KETOROLAC 15 MG/ML 1 ML VIAL IVP STA (22:52)
[2024-03-04 22:53] LABS: Basophils % (A) 1 %; Eosinophils # (A) 0.1 k/uL (0-0.7); Eosinophils % (A) 2 %; HGB 15.1 gm/dL (13.0-17.5); Lymphocytes # (A) 1.5 k/uL (1.0-4.8); Lymphocytes % (A) 20 %; MCH 30.8 pg (25.0-35.0); MCHC 32.7 g/dL (31.0-37.0); MCV 94.1 fL (80.0-100.0); Mean Platelet Volume 7.7; Monocytes # (A) 0.5 k/uL (0-1.0); Monocytes % (A) 6 %; Neutrophils # (A) 5.3 k/uL (1.3-7.7); Neutrophils % (A) 70 %; Platelet Count 248 k/uL (150-450); RBC 4.89 m/uL (4.30-5.90); WBC 7.6 k/uL (3.8-10.6)
[2024-03-04 23:03] LABS: ALT 37 U/L (4-49); AST 40 U/L (17-59); African American GFR (CKD) >90 (>60 ml/min/1.73 sqM); Albumin 4.7 g/dL (3.5-5.0); Alkaline Phosphatase 86 U/L (38-126); Amylase 57 U/L (30-110); Anion Gap 10 mmol/L; Blood Urea Nitrogen 7 mg/dL (9-20); Calcium 10.1 mg/dL (8.4-10.2); Carbon Dioxide 28 mmol/L (22-30); Chloride 101 mmol/L (98-107); Glucose 128 mg/dL (74-99); Lipase 49 U/L (23-300); Non-African American GFR(CKD) >90 (>60 ml/min/1.73 sqM); Potassium 4.4 mmol/L (3.5-5.1); Sodium 139 mmol/L (137-145); Total Bilirubin 0.8 mg/dL (0.2-1.3); Total Protein 7.9 g/dL (6.3-8.2)
--- NOTE | 2024-03-05 02:48 | US ---
EXAM: US Abdomen Limited, Gallbladder CLINICAL HISTORY: RUQ ab pain TECHNIQUE: Real-time ultrasound of the right upper quadrant with image documentation. COMPARISON: 09/20/2021. FINDINGS: Liver: 13.9 cm in length. Gallbladder: No gallstones. No gallbladder wall thickening, sonographic Serrato sign or pericholecystic fluid. Common bile duct: 3 mm diameter. No stones. No dilation. Pancreas: Head and tail obscured by bowel gas. Body grossly unremarkable. Right kidney: 10 cm length. Other: 2.4 x 4.5 x 3.8 cm midline hypoechoic possibly cystic structure indeterminant origin, separate from the pancreas. IMPRESSION: No evidence for cholelithiasis, acute close size or biliary obstruction. Limited evaluation of the pancreas. Indeterminant midline probable cystic structure indeterminant origin, not identified on the prior ultrasound. Correlation with CT examination is recommended if clinically indicated.
[2024-03-05] MEDS: MAGNESIUM CITRATE 296 ML BOTTLE PO ONE (03:30)
[2024-03-05 03:34] VITALS: BP 131/88; PULSE 81; TEMP 97.8
== END 2024-03-05 03:34 | disposition home or self-care (01) ==
LOC: EC 22:10
DX: K59.00 Constipation, unspecified (principal); F17.200 Nicotine dependence, unspecified, uncomplicated
CPT/HCPCS: 36415; 80053; 82150; 83690; 85025; 76705; 99284; 96374; J1885